=== PATIENT | male | born 1955 | race Caucasian/White ===

== ENCOUNTER 2024-05-02 12:17 | Day surgery (SDC) | payer BC ==
[2024-05-02] MEDS: IV FLUID CONTINUATION 1,000 ML IV ONE (12:44)
[2024-05-02 12:55] VITALS: TEMP 99.1
[2024-05-02] MEDS: LIDOCAINE 1% (10MG/ML) FOR IV START INTRADERMA PRN (13:06)
[2024-05-02] MEDS: LACTATED RINGERS 1,000 ML BAG IV STA (13:07)
[2024-05-02] MEDS ORDERED: PROPOFOL 10 MG/ML 20 ML VIAL IV ONE (13:12)
--- NOTE | 2024-05-02 13:28 | P.GSHP ---
History of Present Illness H&P Date: 05/02/24 Chief Complaint: Colon cancer screening 69-year-old male here for colonoscopy. Last colonoscopy several years ago. Patient was attempted to have a colonoscopy x-ray however he had retained stool. He took more prep. Here today for reattempt. No bowel complaints. Past Medical History Past Medical History: Hypertension Additional Past Medical History / Comment(s): varicose veins History of Any Multi-Drug Resistant Organisms: None Reported Additional Past Surgical History / Comment(s): wart removed off foot couple weeks ago, currently on antibiotic, pt states Dr. Cabrera aware; vein stripping; pt had attempted colonoscopy today 05/01/24 @[facility] but was not cleared out. Past Anesthesia/Blood Transfusion Reactions: No Reported Reaction Smoking Status: Former smoker Medications and Allergies Home Medications Medication Instructions Recorded Confirmed Type Cephalexin [Keflex] 500 mg PO Q8HR 05/01/24 05/01/24 History hydroCHLOROthiazide 25 mg PO DAILY 05/01/24 05/02/24 History lisinopriL [Zestril] 20 mg PO BID 05/01/24 05/01/24 History Allergies Allergy/AdvReac Type Severity Reaction Status Date / Time No Known Allergies Allergy Verified 05/01/24 09:48 Surgical - Exam Vital Signs Temp Pulse Resp BP Pulse Ox 99.1 F 75 18 160/78 98 05/02/24 12:53 05/02/24 12:53 05/02/24 12:53 05/02/24 12:53 05/02/24 12:53 Physical exam: General: Well-developed, well-nourished HEENT: Normocephalic, sclerae nonicteric Abdomen: Nontender, nondistended Extremities: No edema Neuro: Alert and oriented Assessment and Plan (1) Colon cancer screening Narrative/Plan: Will proceed with colonoscopy at this time. Current Visit: Yes Status: Acute Code(s): Z12.11 - ENCOUNTER FOR SCREENING FOR MALIGNANT NEOPLASM OF COLON SNOMED Code(s): 731824706
--- NOTE | 2024-05-02 13:29 | P.PCN ---
Date of Procedure: 05/02/24 Procedure(s) Performed: PREOPERATIVE DIAGNOSIS: Colon cancer screening POSTOPERATIVE DIAGNOSIS: Small descending colon polyp PROCEDURE: Colonoscopy with biopsy ANESTHESIA: MAC SURGEON: Chandu Cabrera M.D. SPECIMENS: Polyp ENDOSCOPIC PROCEDURE: The patient was placed on the endoscopy table in the left decubitus position. The Olympus colonoscope was inserted into the anus and passed under direct visualization to the base of the cecum. The appendiceal orifice was visualized. From that point the scope was slowly withdrawn inspecting all surfaces carefully. There were no neoplastic inflammatory or polypoid lesions throughout the cecum, ascending, and transverse colon. The descending colon a small 2 to 3 mm polyp was removed using the cold biopsy forceps. The remainder of the descending sigmoid and rectum was normal. There was mild scattered diverticulosis. Prep was good. Digital rectal examination was normal. The patient was taken to the recovery room in stable condition per anesthesia guidelines. RECOMMENDATIONS: Await biopsy results. Anticipate repeat colonoscopy 7 years.
[2024-05-02 14:46] VITALS: BP 123/60; PULSE 54; RESP 18
== END 2024-05-02 14:25 | disposition home or self-care (01) ==
LOC: ORWHC2ENDO 12:17
PROVIDERS: ATTEND Surgery
DX: K63.5 Polyp of colon (principal)
CPT/HCPCS: 88305; 45380; J2704